=== PATIENT | female | born 1970 | race Caucasian/White ===

== ENCOUNTER 2017-12-12 09:32 | Emergency (ER) | payer OTHER ==
[2017-12-12] MEDS ORDERED: PROPARACAINE 0.5% 15 ML OPHT DROP ONE (09:44)
[2017-12-12] MEDS ORDERED: PROPARACAINE 0.5% 15 ML OPHT DROP LEFTEYE ONE (09:46)
--- NOTE | 2017-12-12 10:30 | EDPHY ---
H & P Time Seen by Provider: 12/12/17 10:00 HPI/ROS: CHIEF COMPLAINT: Left eye injury HISTORY OF PRESENT ILLNESS: Injured yesterday at work when plastic strips hanging down over the door way of walk in cooler hit her in the eye. 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 Today presents with discomfort in her left eye with no change in vision but foreign body sensation. REVIEW OF SYSTEMS: She describes a little bit of yellow discharge or drainage from the eye this morning. PAST MEDICAL HISTORY: Cleft palate, cholecystectomy, and umbilical hernia Social history: Nonsmoker General Appearance: Alert, no distress. Visual acuity: noted from nursing notes. 20/40 right, 20/50 left, 20/25 both. Lids and Lashes: No edema, no stye, no erythema. Conjunctivae: Not injected, no exudate. Sclera: No subconjunctival hemorrhage, no icterus. Pupils: Equal and round, normally reactive. Corneas: Left examined with fluoroscein, uptake inferior to the pupil consistent with corneal abrasion seen with cunha lamp.Negative Rubi test with fluoroscein. No foreign body on surface of cornea. Anterior chamber: normal, no hyphema or hypopyon. External: No proptosis, no periorbital swelling or redness or tenderness. Extraocular motion intact, left eyelid everted with Q-tip and no foreign body seen. Emergency Department course/MDM: Left eye corneal abrasion but no evidence of foreign body or ulcer or globe perforation. Antibiotic eyedrops and work comp for ophthalmology follow-up. Smoking Status: Never smoked Constitutional: Initial Vital Signs Temperature (C) 37 C 12/12/17 09:36 Heart Rate 70 12/12/17 09:36 Respiratory Rate 16 12/12/17 09:36 Blood Pressure 111/60 12/12/17 09:36 O2 Sat (%) 96 12/12/17 09:36 O2 Delivery Mode Room Air Allergies/Adverse Reactions: No Known Allergies Allergy (Unverified 12/12/17 09:36) Home Medications: Medication Instructions Recorded Tobramycin 0.3% [Tobrex 0.3% opht 2 drops Q4 5 Days #1 opht.btl 12/12/17 drops (*)] MDM/Departure - MDM Medications Given: Discontinued Medications Proparacaine HCl (Alcaine 0.5%) 1 drops LEFTEYE ONCE ONE Stop: 12/12/17 09:47 Last Admin: 12/12/17 09:47 Dose: 1 drop - Depart Disposition: Home, Routine, Self-Care Clinical Impression: Corneal abrasion, left Qualifiers: Encounter type: initial encounter Qualified Code(s): S05.02XA - Injury of conjunctiva and corneal abrasion without foreign body, left eye, initial encounter Condition: Good Instructions: Corneal Abrasion (ED) Additional Instructions: Followup in 48 hours with work comp clinic or opthalmologist. Return immediately for worsening eye pain, any decrease in vision. Prescriptions: Tobramycin 0.3% [Tobrex 0.3% opht drops (*)] 2 drops Q4 5 Days #1 opht.btl Referrals: Teresa Cline MD [Medical Doctor] - As per Instructions
[2017-12-12 10:47] VITALS: BP 123/72
== END 2017-12-12 10:47 | disposition home or self-care (01) ==
DX: S05.02XA Injury of conjunctiva and corneal abrasion without foreign body, left eye, initial encounter (principal); W22.8XXA Striking against or struck by other objects, initial encounter; Y92.512 Supermarket, store or market as the place of occurrence of the external cause; Y99.0 Civilian activity done for income or pay; Y93.89 Activity, other specified